=== PATIENT | male | born 1955 | race Caucasian/White ===

== ENCOUNTER 2019-02-23 08:03 | Day surgery (SDC) | payer OTHER ==
[2019-02-22 09:42] VITALS: BMI 27.6
[~2019-02-23 08:03] MED LIST: LACTATED RINGERS 1,000 ML IV SCH; LIDOCAINE 1% 20 ML VIAL (10MG/ML) FOR IV START INTRADERMA PRN
[2019-02-23 08:20] VITALS: RESP 16; TEMP 97.4
[2019-02-23] MEDS ORDERED: PROPOFOL 10 MG/ML 20 ML VIAL IV ONE (08:46)
--- NOTE | 2019-02-23 09:17 | P.PCN ---
Date of Procedure: 02/23/19 Description of Procedure: BRIEF HISTORY: Patient is a 63-year-old pleasant male scheduled for an elective colonoscopy as a part of high risk screening with history of colon polyps. The patient reports having polyps found on his previous 2 colonoscopies, 5 and 10 years ago. He denies any abdominal pain, change in bowel habits or blood per rectum. He does report one sister who passed, but is unsure if it was from colon cancer PROCEDURE PERFORMED: Colonoscopy. PREOPERATIVE DIAGNOSIS: Personal history of colon polyps, screening for malignant neoplasm of the colon, last colonoscopy 5 years ago. ESTIMATED BLOOD LOSS: Minimal. IV sedation per Anesthesia. PROCEDURE: After informed consent was obtained, the patient, was brought into the endoscopy unit. IV sedation was administered by Anesthesia under continuous monitoring. Digital rectal examination was normal. Initially the Olympus CF-190 flexible video colonoscope was then inserted in the rectum, gradually advanced into the cecum without any difficulty. Careful examination was performed as the scope was gradually being withdrawn. Ileocecal valve and the appendiceal orifice were visualized and appeared normal. Prep was excellent. Mucosa of the cecum, ascending colon, transverse colon, descending colon, sigmoid colon, and rectum appeared normal. Retroflexion was performed in the rectum and no lesions were seen, with mild internal hemorrhoids noted. The patient tolerated the procedure well. IMPRESSION: Normal-appearing colon from rectum to cecum . Mild internal hemorrhoids. RECOMMENDATIONS: Findings of this examination were discussed with the patient and his . Okay to resume medications and diet. Recommendation is for repeat colonoscopy in 5 years given personal history of colon polyps.
[2019-02-23 09:35] VITALS: BP 109/75; PULSE 58
== END 2019-02-23 09:54 | disposition home or self-care (01) ==
LOC: ORWHC2ENDO 08:03
PROVIDERS: ATTEND Internal Medicine
DX: Z12.11 Encounter for screening for malignant neoplasm of colon (principal); K64.8 Other hemorrhoids; Z86.010 Personal history of colon polyps; E78.5 Hyperlipidemia, unspecified; Z79.1 Long term (current) use of non-steroidal anti-inflammatories (NSAID); Z79.899 Other long term (current) drug therapy; Z80.0 Family history of malignant neoplasm of digestive organs
CPT/HCPCS: G0105; J2704; 45378

== ENCOUNTER → 2021-05-30 | Outpatient (CLI) | payer OTHER ==
[2021-05-30 08:32] LABS: Basophils % (A) 1 %; Eosinophils # (A) 0.2 k/uL (0-0.7); Eosinophils % (A) 4 %; HGB 15.9 gm/dL (13.0-17.5); Lymphocytes % (A) 33 %; MCH 30.8 pg (25.0-35.0); MCV 93.3 fL (80.0-100.0); Mean Platelet Volume 7.1; Monocytes # (A) 0.4 k/uL (0-1.0); Monocytes % (A) 7 %; Neutrophils # (A) 3.2 k/uL (1.3-7.7); Neutrophils % (A) 53 %; Platelet Count 203 k/uL (150-450); RBC 5.15 m/uL (4.30-5.90); RDW 12.1 % (11.5-15.5); WBC 5.9 k/uL (3.8-10.6)
[2021-05-30 08:46] LABS: INR 0.9 (<1.2)
[2021-05-30 09:02] LABS: Potassium 4.5 mmol/L (3.5-5.1)
== END | disposition home or self-care (01) ==
LOC: LABPAT 07:16
PROVIDERS: ATTEND Orthopaedic Surgery
DX: Z01.818 Encounter for other preprocedural examination (principal); M17.12 Unilateral primary osteoarthritis, left knee; I45.10 Unspecified right bundle-branch block; Z22.322 Carrier or suspected carrier of Methicillin resistant Staphylococcus aureus
CPT/HCPCS: 80051; 85025; 85610; 87070; 93005

== ENCOUNTER 2021-06-10 05:52 | Day surgery (SDC) | payer OTHER ==
[2021-06-06 13:09] VITALS: BMI 31.0
--- NOTE | 2021-06-09 11:06 | HP ---
HISTORY AND PHYSICAL CHIEF COMPLAINT: Left knee pain. 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 He has diffuse pain and swelling along with difficulty with prolonged walking and stairs. He has had previous injections and has tried medications, without much relief. He has also undergone extensive therapy. He notes daily pain that limits him severely. PAST MEDICAL HISTORY: Significant for arthritis. PAST SURGICAL HISTORY: Negative. CURRENT MEDICATIONS: None. ALLERGIES: HE DENIES DRUG ALLERGIES. FAMILY HISTORY: Negative. SOCIAL HISTORY: Negative for current tobacco or alcohol use. REVIEW OF SYSTEMS: Sixteen-point review of systems is otherwise reviewed and noncontributory. PHYSICAL EXAMINATION: On examination, the patient is approximately 5 feet 9 inches, 200 pounds of endomorphic habitus. HEENT exam is nonfocal. Neck is supple. He has painless passive motion of his left hip. Straight-leg raise is negative. Active motion of left knee minus 12 to 95 degrees of flexion. He has a mild effusion. He is tender about the medial joint line. Collaterals are stable, Angela is negative. Crystal's elicits medial pain. He has genu varum alignment. His distal neurovascular exam appears intact in the left lower extremity. X-rays to include weightbearing, notch, lateral and Merchant views of the left knee obtained in the office show severe medial compartment osteoarthrosis with subchondral sclerosis and [id number] changes. IMPRESSION: Left knee severe medial compartment osteoarthrosis. RECOMMENDATIONS: I talked to the patient at length regarding his condition and treatment options. At this point he is quite symptomatic and limited because of pain related to his osteoarthrosis despite previous extensive conservative measures. After thorough discussion, he opts to proceed with surgery. We will plan to proceed with left total knee arthroplasty. We will anticipate same-day discharge. Risks and benefits were discussed at length in layman's terms. MMODL / IJN: [id number] /
[~2021-06-10 05:52] MED LIST changes: +ACETAMINOPHEN TAB 500 MG TAB PO PRN; +DEXAMETHASONE SOD PHOSPHATE 4 MG/ML 1 ML VIAL IV ONE; -LACTATED RINGERS 1,000 ML IV SCH; -LIDOCAINE 1% 20 ML VIAL (10MG/ML) FOR IV START INTRADERMA PRN; +MELOXICAM 7.5 MG TAB PO PRN; +ONDANSETRON 4 MG/2 ML VIAL IVP ONE; +TRANEXAMIC ACID 1,000 MG in SODIUM CHLORIDE 0.9% 100 ML IVPB PRN
[2021-06-10] MEDS: LACTATED RINGERS 1,000 ML IV SCH ×2 (06:40→07:49)
[2021-06-10] MEDS ORDERED: fentaNYL (PF) 50 MCG/ML 2 ML AMP IVP ONE ×2 (06:57→07:01)
[2021-06-10] MEDS ORDERED: MIDAZOLAM 2 MG/2 ML VIAL IVP ONE (06:57)
[2021-06-10] MEDS ORDERED: HYDROmorphone 0.5 MG/0.5 ML SYRINGE IVP PRN (07:00)
[2021-06-10] MEDS ORDERED: SODIUM CHLORIDE 0.9% (PF) 10 ML VIAL ONE (07:49)
[2021-06-10] MEDS ORDERED: MIDAZOLAM 2 MG/2 ML VIAL ONE (07:49)
[2021-06-10] MEDS ORDERED: ROCURONIUM 10 MG/ML (5 ML VIAL) IV ONE (07:49)
[2021-06-10] MEDS ORDERED: fentaNYL (PF) 50 MCG/ML 2 ML AMP ONE (07:49)
[2021-06-10] MEDS ORDERED: SODIUM CHLORIDE 0.9% 100 ML BAG ONE (07:49)
[2021-06-10] MEDS ORDERED: LIDOCAINE 1% INJ 10MG/ML (20 ML MDV) ONE (07:49)
[2021-06-10] MEDS ORDERED: ROPIVACAINE 5 MG/ML 30 ML VIAL ONE (07:49)
[2021-06-10] MEDS ORDERED: TRANEXAMIC ACID 1,000 MG/10 ML VIAL ONE (07:49)
[2021-06-10] MEDS ORDERED: PHENYLEPHRINE-0.9% NACL SYG 1,000 MCG/10 ML SYRINGE ONE (07:49)
[2021-06-10] MEDS ORDERED: SUCCINYLCHOLINE CHLORIDE 100 MG/5 ML SYR IV ONE (07:49)
[2021-06-10] MEDS ORDERED: ceFAZolin 1,000 MG in SODIUM CHLORIDE 0.9% 1,000 ML IRRIGATION ONE (08:16)
[2021-06-10] MEDS ORDERED: LACTATED RINGERS 1,000 ML IV ONE (08:57)
[2021-06-10] MEDS ORDERED: ROPIVACAINE 0.2%-NS ON-Q PUMP 1,090 MG, EMPTY PAIN BALL 1 EACH MISCELLANE PRN (09:40)
--- NOTE | 2021-06-10 09:41 | P.OP ---
Date of Procedure: 06/10/21 Preoperative Diagnosis: Left knee severe tricompartmental osteoarthrosis Postoperative Diagnosis: Same Procedure(s) Performed: Left total knee arthroplastycementedposterior stabilized Implants: Depuy Attune size 7 cemented femoral component, size 6 cemented tibial component, 9 mm articular surface, 35 mm cemented patellar component. This is a posterior stabilized implant. Anesthesia: [facility] Surgeon: Kal Pelletier Still Operator Gin #1: Nehemiah Roa Estimated Blood Loss (ml): 50 Pathology: other (Bone fragments) Condition: stable Disposition: PACU Indications for Procedure: The patient's a 65-year-old male who presents with progressive left knee pain secondary osteoarthrosis despite previous conservative measures. After through discussion of the options to include continued conservative measures versus operative options he opted to proceed with surgery. Operative risks to include infection, neurovascular injury, development of blood clots, possible fracture, possible component loosening/failure and need for subsequent procedures was discussed. Informed consent was obtained. Operative Findings: As below Description of Procedure: The patient was brought to the operating room, and after induction of spinal anesthesia the left lower extremity was prepped and draped in a normal fashion. The tourniquet was inflated to 270 mm marker. A longitudinal incision extending 3 finger breaths above the superior pole of patella extending to the medial aspect the tibial tubercle was then made. The skin and subcutaneous tissues were divided sharply. Electrocautery was used for hemostasis. A medial parapatellar arthrotomy was performed. The medial soft tissues to include the superficial and deep portions of the medial collateral ligament were elevated subperiosteally. The patella was everted. A portion of the retropatellar fat pad was excised sharply. The anterior cruciate ligament was sacrificed. Blunt retractors were placed. A starting hole was made in the distal femur 1 cm anterior to the posterior cruciate ligament origin. An intramedullary femoral guide was then inserted planning on 5 valgus distal cut with 9 mm distal resection. The cutting block was pinned in place. The distal cut was then made. The posterior referencing sizing guide was utilized. I felt size 7 was most appropriate. 3 of external rotation was built into the system and verified off the trans-epicondylar axis and the posterior condyles. The cutting block was pinned in place. The anterior, posterior, and chamfer cuts then made. Bone fragments were removed. The intercondylar guide was placed and the notch cut was made with a sagittal saw. The bone block was removed in one fragment. The trial component was then placed. There is good anterior to posterior and medial to lateral fit. The distal peg holes were drilled. The trial component was removed. Attention was then paid towards preparing the proximal femur. An extra medullary guide was utilized in line with the tibial shaft and second metatarsal distally. I planned on to mm resection from the medial compartment. The cutting block was pinned in place. The proximal tibial cut was then made. The bone was removed in one fragment. The remnants of the medial and lateral menisci were excised at the capsular junction with electrocautery. The tibia sized most appropriately at size 6. The trial femoral and tibial components were placed along with a 9 mm articular surface. I was able to obtain full flexion and extension with internal and external rotation. After several flexi on and extension cycles, the tibial rotation was marked with electrocautery line with the medial one third of the tibial tubercle. Attention was then paid towards preparing the patella. A patella reamer was utilized taking stem to 14 mm of bone stock. A good flush cut was made. The patella sized most appropriately 35 mm. The peg holes were drilled. The trial components placed. I had good patellofemoral tracking with no hands technique. The trial components were then removed. The tibia was prepared in the appropriate rotation with appropriate drill and keel punch. The posterior osteophytes were removed with a curved osteotome. The flexion and extension gaps were checked and felt to be symmetric at 9 mm. A trial components were then removed. The bony surfaces were prepared with pulsatile lavage and dried. The tibial component was then cemented place was fully seated. Excess cement was removed. The femoral component cemented place and was fully seated. Excess cement was removed. The trial 9 mm articular surface was placed and the knee was put in full extension. The patella component was cemented place. After the cement had sufficiently hardened, the knee was again taken through a range of motion. Again I was able to obtain full flexion and extension with varus and valgus stress. The trial 9 mm articular surface was removed and the final one inserted. This was fully seated. Care was taken to avoid any soft tissue interposition. Pulsatile lavage was again utilized. The medial parapatellar arthrotomy was closed with #2 Ethibond suture. The tourniquet was deflated with approximately 60 minutes total tourniquet time. Final hemostasis was obtained with the cautery. There was minimal bleeding therefore a deep drain was not placed. The subcutaneous tissues were reapproximated with interrupted 2-0 Vicryl sutures. The skin was reapproximated with 3-0 subcuticular strata fix suture. Skin tape and adhesive was applied. A sterile dressing was applied. The patient was awoken from sedation and transferred to recovery room in good condition. Blood loss was estimated at 50 mL. No complications were incurred. Sponge and needle counts were correct at the end of the case. Nehemiah DANIEL assisted during the major components of this case to include exposure, bone resection, implantation, and closure.
[2021-06-10 09:51] VITALS: TEMP 97.9
--- NOTE | 2021-06-10 10:11 | XR ---
EXAMINATION TYPE: XR knee limited LT DATE OF EXAM: 06/10/2021 CLINICAL HISTORY: Left knee pain and arthritis status post total knee replacement. TECHNIQUE: Portable AP and crosstable lateral views of the left knee are obtained immediately postop eratively. COMPARISON: Outside left knee x-ray May 15, 2021 FINDINGS: Metallic hardware from total left knee arthroplasty is seen and appears satisfactory in al ignment and position. There is evidence of recent surgery with diffuse subcutaneous gas and soft tis yancy swelling noted. Some nonspecific cortical thickening lateral aspect mid to distal femur is partia lly imaged. Correlate clinically. IMPRESSION: METALLIC HARDWARE FROM TOTAL LEFT KNEE ARTHROPLASTY IS SATISFACTORY IN ALIGNMENT.
[2021-06-10] MEDS ORDERED: HYDROcodone/APAP 7.5-325MG 1 EACH TAB PO ONE (11:10)
[2021-06-10] MEDS ORDERED: HYDROcodone/APAP 7.5-325MG 1 EACH TAB ONE (11:14)
[2021-06-10] MEDS ORDERED: HYDROcodone/APAP 5-325MG 1 EACH TAB PO PRN (12:34)
[2021-06-10] MEDS ORDERED: HYDROcodone/APAP 7.5-325MG 1 EACH TAB PO PRN (12:34)
[2021-06-10] MEDS ORDERED: NALOXONE 0.4 MG/ML 1 ML VIAL IV PRN (12:34)
--- NOTE | 2021-06-10 13:56 | P.ANPRN ---
Procedure Note - Anesthesia - Nerve Block Performed Left Adductor Canal Infusion Time Out Performed: Yes (656) Date of Procedure: 06/10/21 Procedure Start Time: 06:59 Procedure Stop Time: 07:05 Location of Patient: PreOp Indication: Acute Post-Operative Pain, Requested by Surgeon Specifically requested for management of pain by DrWally: Kal Pelletier Type: Sedate with meaningful contact maintained Preparation: Sterile Prep, Sterile Dressing Position: Supine Needle Types: Pajunk Needle Gauge: 18 Ultrasound used to visualize needle placement: Yes Ultrasound used to observe medication spread: Yes Injectate: 0.5% Ropivacaine (see comment for volume) (20cc 0.25%) Blood Aspirated: No Pain Paresthesia on Injection Noted: No Resistance on Injection: Normal Image Stored and Saved: Yes Events: Uneventful and Well Tolerated Left iPack Single Time Out Performed: Yes (06:56) Date of Procedure: 06/10/21 Procedure Start Time: 07:06 Procedure Stop Time: 07:10 Location of Patient: PreOp Indication: Acute Post-Operative Pain Specifically requested for management of pain by Dr.: Kal Pelletier Sedation Type: Sedate with meaningful contact maintained Preparation: Sterile Prep Position: Supine Needle Types: Facet Needle Gauge: 21 Ultrasound used to visualize needle placement: Yes Ultrasound used to observe medication spread: Yes Injectate: 0.5% Ropivacaine (see comment for volume) (20cc 0.25%) Blood Aspirated: No Pain Paresthesia on Injection Noted: No Resistance on Injection: Normal Image Stored and Saved: Yes Events: Uneventful and Well Tolerated
[2021-06-10 14:28] VITALS: BP 122/74; PULSE 79; RESP 20
== END 2021-06-10 14:12 | disposition home health service (06) ==
LOC: OR 05:52
PROVIDERS: ATTEND Orthopaedic Surgery
DX: M17.12 Unilateral primary osteoarthritis, left knee (principal); M25.762 Osteophyte, left knee; E78.5 Hyperlipidemia, unspecified; Z79.1 Long term (current) use of non-steroidal anti-inflammatories (NSAID); Z79.899 Other long term (current) drug therapy
CPT/HCPCS: 97110; 97161; 64999; 64448; 76942; 86900; 86901; 86850; 88300; 73560; 27447; C1713 ×2; C1776; J2250; J1100; J0690 ×2; J2405; J2001; J3010; J2795 ×2; J2370; J0330

== ENCOUNTER 2021-10-07 05:41 | Day surgery (SDC) | payer OTHER ==
[2021-10-02 16:48] VITALS: BMI 31.0
--- NOTE | 2021-10-06 11:31 | HP ---
HISTORY AND PHYSICAL CHIEF COMPLAINT: Right knee pain. HISTORY OF PRESENT ILLNESS: The patient is a 66-year-old retired male who presents with progressive right knee pain for the past several years, worsening recently. He has tried medications and injections, with minimal relief. He notes daily pain that limits him. He does use a cane. PAST MEDICAL HISTORY: Significant for osteoarthritis. PAST SURGICAL HISTORY: Significant for left total knee arthroplasty. CURRENT MEDICATIONS: Hydrocodone. ALLERGIES: HE DENIES DRUG ALLERGIES. FAMILY HISTORY: Negative. SOCIAL HISTORY: Negative for current tobacco or alcohol use. REVIEW OF SYSTEMS: Sixteen-point review of systems otherwise reviewed and is noncontributory. PHYSICAL EXAMINATION: On examination, the patient is approximately 5 feet 9 inches, 202 pounds, of mesomorphic habitus. HEENT exam is nonfocal. Neck is supple. He has painless passive motion of the right hip. Straight-leg raise is negative. Active motion of the right knee: Minus 13 to 120 degrees of flexion. He is tender about the medial joint line. He has mild effusion. He has genu varum alignment. His distal neurovascular exam appears intact in the right lower extremity. Weightbearing notch, lateral and Merchant views of the right knee obtained in the office show severe medial and patellofemoral compartment narrowing with [id number] changes and subchondral sclerosis. IMPRESSION: Right knee severe medial and patellofemoral compartment osteoarthrosis. RECOMMENDATIONS: I talked to the patient at length regarding his condition along with treatment options. At this point he is quite symptomatic and limited despite previous conservative measures. After thorough discussion, he opts to proceed with surgery. We will plan to proceed with right total knee arthroplasty, likely as a same-day discharge. Risks and benefits were discussed at length in layman's terms. MMODL / IJN: [id number] /
[~2021-10-07 05:41] MED LIST changes: +LACTATED RINGERS 1,000 ML IV SCH
[2021-10-07] MEDS ORDERED: fentaNYL (PF) 50 MCG/ML 2 ML AMP IVP ONE (07:09)
[2021-10-07] MEDS ORDERED: MIDAZOLAM 2 MG/2 ML VIAL IVP ONE (07:09)
[2021-10-07] MEDS ORDERED: ROPIVACAINE 0.2%-NS ON-Q PUMP 1,090 MG, EMPTY PAIN BALL 1 EACH MISCELLANE PRN (07:49)
--- NOTE | 2021-10-07 07:51 | P.ANPRN ---
Procedure Note - Anesthesia - Nerve Block Performed Right Adductor Canal Time Out Performed: Yes (07:) Date of Procedure: 10/07/21 Procedure Start Time: Procedure Stop Time: Location of Patient: PreOp Indication: Acute Post-Operative Pain, Requested by Surgeon (Dr Pelletier) Sedation Type: Sedate with meaningful contact maintained Preparation: Sterile Prep, Sterile Dressing Position: Supine Catheter: Indwelling Needle Types: Pajunk Needle Gauge: 21 Ultrasound used to visualize needle placement: Yes Ultrasound used to observe medication spread: Yes Injectate: 0.5% Ropivacaine (see comment for volume) (15cc) Blood Aspirated: No Pain Paresthesia on Injection Noted: No Resistance on Injection: Normal Image Stored and Saved: Yes Events: Uneventful and Well Tolerated
--- NOTE | 2021-10-07 07:55 | P.ANPRN ---
Procedure Note - Anesthesia - Nerve Block Performed Right iPack Time Out Performed: Yes Date of Procedure: 10/07/21 Procedure Start Time: 07:20 Procedure Stop Time: 07:29 Location of Patient: PreOp Indication: Acute Post-Operative Pain, Requested by Surgeon (Dr Pelletier) Sedation Type: Sedate with meaningful contact maintained Preparation: Sterile Prep Position: Supine Catheter: None Needle Types: Pajunk Needle Gauge: 21 Ultrasound used to visualize needle placement: Yes Ultrasound used to observe medication spread: Yes Injectate: 0.5% Ropivacaine (see comment for volume) (15cc + 5cc PF Normal saline) Blood Aspirated: No Pain Paresthesia on Injection Noted: No Resistance on Injection: Normal Image Stored and Saved: Yes Events: Uneventful and Well Tolerated
[2021-10-07] MEDS ORDERED: TRANEXAMIC ACID 1,000 MG/10 ML VIAL ONE (08:05)
[2021-10-07] MEDS ORDERED: NEOSTIGMINE 1 MG/ML 10 ML VIAL ONE (08:05)
[2021-10-07] MEDS ORDERED: GLYCOPYRROLATE 0.2 MG/ML 2 ML VIAL ONE (08:05)
[2021-10-07] MEDS ORDERED: SUCCINYLCHOLINE CHLORIDE 100 MG/5 ML SYR IV ONE (08:05)
[2021-10-07] MEDS ORDERED: PROPOFOL 10 MG/ML 20 ML VIAL IV ONE (08:05)
[2021-10-07] MEDS ORDERED: HYDROmorphone (PF) 1 MG/ML ONE (08:05)
[2021-10-07] MEDS ORDERED: ROPIVACAINE 5 MG/ML 30 ML VIAL ONE (08:05)
[2021-10-07] MEDS ORDERED: SODIUM CHLORIDE 0.9% 100 ML BAG ONE (08:05)
[2021-10-07] MEDS ORDERED: SODIUM CHLORIDE 0.9% (PF) 10 ML VIAL ONE (08:05)
[2021-10-07] MEDS ORDERED: ROCURONIUM 10 MG/ML (5 ML VIAL) IV ONE (08:05)
[2021-10-07] MEDS ORDERED: LIDOCAINE 1% INJ 10MG/ML (20 ML MDV) ONE (08:05)
[2021-10-07] MEDS ORDERED: fentaNYL (PF) 50 MCG/ML 2 ML AMP ONE (08:05)
[2021-10-07] MEDS ORDERED: ceFAZolin 1,000 MG in SODIUM CHLORIDE 0.9% 1,000 ML IRRIGATION ONE (08:26)
[2021-10-07] MEDS ORDERED: NALOXONE 0.4 MG/ML 1 ML VIAL IV PRN (09:39)
[2021-10-07] MEDS ORDERED: ONDANSETRON 4 MG/2 ML VIAL IVP PRN (09:39)
[2021-10-07] MEDS ORDERED: HYDROmorphone 0.5 MG/0.5 ML SYRINGE IVP PRN (09:39)
[2021-10-07] MEDS ORDERED: HYDROcodone/APAP 7.5-325MG 1 EACH TAB PO PRN (09:39)
[2021-10-07] MEDS ORDERED: LACTATED RINGERS 1,000 ML IV ONE ×2 (09:46→14:19)
[2021-10-07] MEDS: HYDROmorphone 0.5 MG/0.5 ML SYRINGE IVP PRN ×4 (10:07→10:44)
--- NOTE | 2021-10-07 10:07 | P.OP ---
Date of Procedure: 10/07/21 Preoperative Diagnosis: Right knee severe tricompartmental osteoarthrosis Postoperative Diagnosis: Same Procedure(s) Performed: Right total knee arthroplastyposterior stabilizedcemented Implants: Depuy Attune size 7 cemented femoral component, size 6 cemented tibial component, 10 mm articular surface, 35 mm cemented patellar component. Anesthesia: quan LOWRY Surgeon: Kal Pelletier Hot Pond Operator #1: Augustine Duenas Estimated Blood Loss (ml): 50 Pathology: other (Bone fragments) Condition: stable Disposition: PACU Indications for Procedure: The patient is a 66-year-old male presents with progressive right knee pain seco ndary to osteoarthrosis despite conservative measures. A discussion of the risks and benefits of operative intervention versus continued conservative measures was made with patient. He opted to proceed with surgery. Operative risks to include infection, neurovascular injury, development of blood clots, possible component loosening/failure and need for subsequent procedures was discussed. Informed consent was obtained. Operative Findings: As below Description of Procedure: The patient was brought to the operating room, and after induction of spinal anesthesia the right lower extremity was prepped and draped in a normal fashion. The tourniquet was inflated to 270 mm marker. A longitudinal incision extending 3 finger breaths above the superior pole of patella extending to the medial aspect the tibial tubercle was then made. The skin and subcutaneous tissues were divided sharply. Electrocautery was used for hemostasis. A medial parapatellar arthrotomy was performed. The medial soft tissues to include the superficial and deep portions of the medial collateral ligament were elevated subperiosteally. The patella was everted. A portion of the retropatellar fat pad was excised sharply. The anterior cruciate ligament was sacrificed. Blunt retractors were placed. A starting hole was made in the distal femur 1 cm ante rior to the posterior cruciate ligament origin. An intramedullary femoral guide was then inserted planning on 5 valgus distal cut with 9 mm distal resection. The cutting block was pinned in place. The distal cut was then made. The posterior referencing sizing guide was utilized. I felt size 7 was most appropriate. 3 of external rotation was built into the system and verified off the trans-epicondylar axis and the posterior condyles. The cutting block was pinned in place. The anterior, posterior, and chamfer cuts then made. Bone fragments were removed. The intercondylar guide was placed and the notch cut was made with a sagittal saw. The bone block was removed in one fragment. The trial component was then placed. There is good anterior to posterior and medial to lateral fit. The distal peg holes were drilled. The trial component was removed. Attention was then paid towards preparing the proximal femur. An extra medullary guide was utilized in line with the tibial shaft and second metatarsal distally. I planned on 2 mm resection from the medial compartment. The cutting block was pinned in place. The proximal tibial cut was then made. The bone was removed in one fragment. The remnants of the medial and lateral menisci were excised at the capsular junction with electrocautery. The tibia sized most appropriately at size 6. The trial femoral and tibial components were placed along with a 10 mm articular surface. I was able to obtain full flexion and extension with internal and external rotation. After several flexion and extension cycles, the tibial rotation was marked with electrocautery line with the medial one third of the tibial tubercle. Attention was then paid towards preparing the patella. A patella reamer was utilized taking stem to 14 mm of bone stock. A good flush cut was made. The patella sized most appropriately 35 mm. The peg holes were drilled. The trial components placed. I had good patellofemoral tracking with no hands technique. The trial components were then removed. The tibia was prepared in the appropriate rotation with appropriate drill and keel punch. The posterior osteophytes were removed with a curved osteotome. The flexion and extension gaps were checked and felt to be symmetric at 10 mm. A trial components were then removed. The bony surfaces were prepared with pulsatile lavage and dried. The tibial component was then cemented place was fully seated. Excess cement was removed. The femoral component cemented place and was fully seated. Excess cement was removed. The trial 10 mm articular surface was placed and the knee was put in full extension. The patella component was cemented place. After the cement had sufficiently hardened, the knee was again taken through a range of motion. Again I was able to obtain full flexion and extension with varus and valgus stress. The trial 10 mm articular surface was removed and the final one inserted. This was fully seated. Care was taken to avoid any soft tissue interposition. Pulsatile lavage was again utilized. The medial parapatellar arthrotomy was closed with #2 Ethibond suture. The tourniquet was deflated with approximately 60 minutes total tourniquet time. Final hemostasis was obtained with the cautery. There was minimal bleeding therefore a deep drain was not placed. The subcutaneous tissues were reapproximated with interrupted 2-0 Vicryl sutures. The skin was reapproximated with 3-0 subcuticular strata fix suture. Skin tape and adhesive was applied. A sterile dressing was applied. The patient was awoken from sedation and transferred to recovery room in good condition. Blood loss was estimated at 50 mL. No complications were incurred. Sponge and needle counts were correct at the end of the case. Justo DANIEL assisted during the major components of this case to include exposure, bone resection, implantation, and closure.
[2021-10-07 10:15] VITALS: TEMP 98
[2021-10-07] MEDS ORDERED: KETOROLAC 15 MG/ML 1 ML VIAL IVP ONE (10:31)
--- NOTE | 2021-10-07 11:14 | XR ---
Limited right knee HISTORY: Status post right knee arthroplasty 2 views the right knee Patient is status post right knee arthroplasty. There is anatomic alignment. Lucency is present withi n the soft tissues, there is soft tissue swelling. IMPRESSION: Orthopedic follow-up
[2021-10-07 13:27] VITALS: PULSE 99
[2021-10-07 14:18] VITALS: BP 125/82; RESP 20
== END 2021-10-07 16:11 | disposition home health service (06) ==
LOC: OR 05:41
PROVIDERS: ATTEND Orthopaedic Surgery
DX: M17.11 Unilateral primary osteoarthritis, right knee (principal)
CPT/HCPCS: 27447; 97110; 97161; 64999; 64448; 76942; 88300; 73560; C1713 ×2; C1776; J2250; J1100; J2710; J0690 ×2; J2405; J2001; J3010; J1170 ×2; J2795 ×2; J1885; J0330; J2704

== ENCOUNTER → 2022-07-30 | Outpatient (CLI) | payer OTHER ==
[2022-07-30 15:38] LABS: African American GFR (CKD) >90 (>60 ml/min/1.73 sqM); Blood Urea Nitrogen 20 mg/dL (9-20); Non-African American GFR(CKD) >90 (>60 ml/min/1.73 sqM)
--- NOTE | 2022-07-30 22:51 | CT ---
EXAMINATION TYPE: CT urogram wo/w con CT DLP: 4677.7 mGycm, Automated exposure control for dose reduction was used. DATE OF EXAM: 07/30/2022 4:33 PM COMPARISON: None CLINICAL INDICATION:Male, 67 years old with history of R31.1 BENIGN ESSENTIAL MICROSCOPIC HEMATURIA, BENIGN ESSENTIAL MICROSCOPIC HEMATURIA TECHNIQUE: Urogram with imaging of the abdomen and pelvis. Coronal and sagittal reformats were performed. 2D and 3D reconstructions are performed to assist visualization of the urinary tract on a separate workstat ion. Contrast used:100ml mL of Isovue 300 without and with IV Contrast, Oral contrast used: None. FINDINGS: LOWER CHEST: No significant findings. GENITOURINARY: RIGHT KIDNEY AND URETER: No calculi. No hydronephrosis or hydroureter. No renal mass or other lesions . No urothelial lesions: no filling defect, dilation, stricture or wall thickening. LEFT KIDNEY AND URETER: No calculi. No hydronephrosis or hydroureter. No renal mass or other lesions. No urothelial lesions: no filling defect, dilation, stricture or wall thickening. URINARY BLADDER: Not optimally distended. Limited evaluation secondary to partial filling of the blad casandra with excreted IV contrast. No calculi or obvious mass. REPRODUCTIVE: Prostate gland is enlarged measuring 5.8 cm transverse dimension. ABDOMEN LIVER: Unremarkable. GALLBLADDER AND BILE DUCTS: Unremarkable PANCREAS: Lipomatous pseudohypertrophy changes. SPLEEN: Unremarkable. ADRENAL GLANDS: Unremarkable. STOMACH AND BOWEL: . No evidence of bowel obstruction. Few scattered clonic diverticula present. PERITONEUM: No evidence of pneumoperitoneum, free fluid, or adenopathy. VASCULATURE: No evidence of aortic aneurysm. Atherosclerosis of the arterial vasculature. MUSCULOSKELETAL: No acute osseous abnormalities LYMPH NODES: No gross evidence for lymphadenopathy. SOFT TISSUE/ABDOMINAL WALL: Unremarkable IMPRESSION: 1. No evidence of urolithiasis or renal/urothelial neoplasm. 2. Prostatomegaly. Correlate serum PSA. 3. Colonic diverticulosis.
== END | disposition home or self-care (01) ==
LOC: RADCTMAIN 14:46
PROVIDERS: ATTEND Urology
DX: N40.0 Benign prostatic hyperplasia without lower urinary tract symptoms (principal); K57.30 Diverticulosis of large intestine without perforation or abscess without bleeding; R31.1 Benign essential microscopic hematuria
CPT/HCPCS: 82565; 84520; 74178; 36415; 74400; Q9967

== ENCOUNTER → 2023-01-05 | Outpatient (CLI) | payer OTHER ==
[2023-01-05 15:12] LABS: Basophils # (A) 0.04 X 10*3/uL (0.00-0.10); Basophils % (A) 0.6 %; Eosinophils # (A) 0.19 X 10*3/uL (0.04-0.35); Eosinophils % (A) 2.8 %; HCT 42.9 % (39.6-50.0); HGB 13.6 g/dL (13.0-17.0); Immature Grans, Automated 0.3 %; Lymphocytes # (A) 1.66 X 10*3/uL (0.90-5.00); Lymphocytes % (A) 24.6 %; MCH 26.8 pg (27.0-32.0); MCHC 31.7 g/dL (32.0-37.0); MCV 84.6 fL (80.0-97.0); Mean Platelet Volume 10.3 fL (9.5-12.2); Monocytes # (A) 0.76 X 10*3/uL (0.20-1.00); Monocytes % (A) 11.3 %; NRBC Per 100 WBC 0 /100 WBCS (0.0-0.0); Neutrophils # (A) 4.07 X 10*3/uL (1.80-7.70); Neutrophils % (A) 60.4 %; Platelet Count 232 X 10*3/uL (140-440); RBC 5.07 X 10*6/uL (4.40-5.60); RDW 15.2 % (11.5-14.5); WBC 6.74 X 10*3/uL (4.50-10.00)
[2023-01-05 16:08] LABS: % Iron Saturation 11.53 (15.00-50.00); Ferritin 20.4 ng/mL (22.0-322.0)
== END | disposition home or self-care (01) ==
LOC: LABWHC1 10:28
PROVIDERS: ATTEND Nurse Practitioner Family
DX: D64.9 Anemia, unspecified (principal)
CPT/HCPCS: 36415; 82728; 83540; 83550; 85025

== ENCOUNTER 2023-01-15 08:30 | Day surgery (SDC) | payer OTHER ==
[2023-01-13 12:32] VITALS: BMI 34.9
[~2023-01-15 08:30] MED LIST changes: -ACETAMINOPHEN TAB 500 MG TAB PO PRN; -DEXAMETHASONE SOD PHOSPHATE 4 MG/ML 1 ML VIAL IV ONE; +LIDOCAINE 1% (10MG/ML) FOR IV START INTRADERMA PRN; -MELOXICAM 7.5 MG TAB PO PRN; -ONDANSETRON 4 MG/2 ML VIAL IVP ONE; -TRANEXAMIC ACID 1,000 MG in SODIUM CHLORIDE 0.9% 100 ML IVPB PRN
[2023-01-15 08:46] VITALS: TEMP 97
[2023-01-15] MEDS ORDERED: PROPOFOL 10 MG/ML 20 ML VIAL IV ONE (09:01)
[2023-01-15] MEDS ORDERED: LIDOCAINE 2% INJ 20 MG/ML (2 ML VIAL) ONE (09:01)
--- NOTE | 2023-01-15 09:16 | P.PCN ---
Date of Procedure: 01/15/23 Procedure(s) Performed: Brief history: Patient is a pleasant s 67-year-old white male scheduled for an elective upper endoscopy as well as colonoscopy as a part of evaluation of iron deficiency anemia. He does complain of occasional heartburn. Denies any dysphagia or odynophagia. No rectal bleeding or melena. Last colonoscopy was 5 years ago. Procedure performed: Esophagogastroduodenoscopy with biopsy Colonoscopy Preoperative diagnosis: Iron deficiency anemia Anesthesia: [facility] Procedure: After informed consent was obtained from the patient was brought into the endoscopy unit and IV sedation was administered by anesthesia under continuous monitoring. Initially upper endoscopy was done. The Olympus GF 160 video endoscope was inserted inserted into the mouth and esophagus intubated without any difficulty and was gradually advanced into the stomach and duodenum and carefully examined. The bulb and second part of the duodenum appeared normal. Biopsies were done from the duodenum to rule out celiac disease The scope was then withdrawn into the stomach adequately insufflated with air and upon careful examination the antrum had mild gastritis and biopsies were done from this area. Mucosa of the body, cardia and fundus appeared normal. The scope was then withdrawn into the esophagus. Small hiatal hernia noted. The GE junction was located at 45 cm to the incisors. There were linear erosions in the distal esophagus consistent with LA grade B reflux esophagitis. Rest of the esophagus appeared normal. Patient tolerated the procedure well. At this time the patient continued to remain sedation. Initial digital rectal examination was normal. Olympus CF 160 video colonoscope was then inserted into the rectum and gradually advanced to the cecum without any difficulty. Careful examination was performed as the scope was gradually being withdrawn. The prep was excellent. The cecum, ascending colon, transverse colon, descending colon, sigmoid colon and rectum appeared normal. Retroflexion was performed in the rectum and no lesions were noted. Patient tolerated the procedure well. Impression: 1. Upper endoscopy revealed mild antral gastritis and LA grade B reflux esophagitis/small hiatal hernia. 2. Colonoscopy was within normal limits with no evidence of colorectal neoplasia Recommendations: Findings of this examination were discussed with the patient as well as his family. He was advised to follow with the biopsy results. He'll be started on Prilosec 20 mg daily and was briefly educated about antireflux measures. Recommend repeat screening colonoscopy in 10 years.
[2023-01-15 09:34] VITALS: RESP 16
[2023-01-15 09:47] VITALS: BP 150/86; PULSE 73
== END 2023-01-15 10:09 | disposition home or self-care (01) ==
LOC: ORWHC2ENDO 08:30
PROVIDERS: ATTEND Internal Medicine Gastroenterology
DX: K29.50 Unspecified chronic gastritis without bleeding (principal); D50.9 Iron deficiency anemia, unspecified; K44.9 Diaphragmatic hernia without obstruction or gangrene; K31.89 Other diseases of stomach and duodenum; K21.00 Gastro-esophageal reflux disease with esophagitis, without bleeding; E78.5 Hyperlipidemia, unspecified; N40.0 Benign prostatic hyperplasia without lower urinary tract symptoms; E66.9 Obesity, unspecified; Z79.899 Other long term (current) drug therapy
CPT/HCPCS: 88305; 88342; 45378; 43239; J2704; J2001; 88341

== ENCOUNTER → 2023-08-26 | Outpatient (CLI) | payer OTHER ==
[2023-08-26 16:14] LABS: Basophils # (A) 0.07 X 10*3/uL (0.00-0.10); Basophils % (A) 1.1 %; Eosinophils # (A) 0.25 X 10*3/uL (0.04-0.35); Eosinophils % (A) 3.8 %; HCT 49.1 % (39.6-50.0); HGB 15.7 g/dL (13.0-17.0); Lymphocytes # (A) 2.45 X 10*3/uL (0.90-5.00); Lymphocytes % (A) 37.7 %; MCH 27.4 pg (27.0-32.0); MCV 85.7 FL (80.0-97.0); Mean Platelet Volume 10.4 FL (9.5-12.2); Monocytes # (A) 0.72 X 10*3/uL (0.20-1.00); Monocytes % (A) 11.1 %; NRBC Per 100 WBC 0 X 10*3/uL (0.00-0.01); Neutrophils # (A) 2.99 X 10*3/uL (1.80-7.70); Platelet Count 268 X 10*3/uL (140-440); RBC 5.73 X 10*6/uL (4.40-5.60); RDW 14.6 % (11.5-14.5)
[2023-08-26 16:29] LABS: % Iron Saturation 8.81 (15.00-50.00); Ferritin 24.1 ng/mL (22.0-322.0)
== END | disposition home or self-care (01) ==
LOC: LABWHC1 09:54
PROVIDERS: ATTEND Nurse Practitioner Family
DX: D64.9 Anemia, unspecified (principal); B96.81 Helicobacter pylori [H. pylori] as the cause of diseases classified elsewhere
CPT/HCPCS: 36415; 82728; 83540; 83550; 85025; 87338

== ENCOUNTER 2023-11-13 10:19 | Emergency (ER) | payer OTHER ==
[2023-11-13] MEDS: HYDROmorphone 0.5 MG/0.5 ML SYRINGE IVP STA (10:51)
[2023-11-13] MEDS: LORazepam 2 MG/ML INJ IV STA (10:52)
--- NOTE | 2023-11-13 10:54 | ED ---
General Adult HPI - General Chief complaint: Urogenital Stated complaint: Kidney stone Time Seen by Provider: 11/13/23 10:25 Source: patient, RN notes reviewed, old records reviewed Mode of arrival: ambulatory Limitations: no limitations - History of Present Illness Initial comments: This is a 68-year-old male who presents to the emergency department because he is having some suprapubic abdominal pain. Patient states he been unable to urinate. Patient states he already saw the urologist and they told him he had a large urethral stone and that is causing him difficulty urinating. Patient denies any back pain. Patient [place] any dysuria. Patient denies any fever chills or cough. - Related Data Home Medications Medication Instructions Recorded Confirmed Ibuprofen [Motrin] 600 mg PO DAILY PRN 02/22/19 01/15/23 Gabapentin [Neurontin] 300 mg PO TID 01/13/23 01/15/23 Previous Rx's Medication Instructions Recorded Sulfamethox-Tmp 800-160Mg [Bactrim 1 each PO Q12HR #14 tab 11/13/23 DS 800-160 mg] Allergies Allergy/AdvReac Type Severity Reaction Status Date / Time No Known Allergies Allergy Verified 11/13/23 10:28 Review of Systems ROS Statement: Those systems with pertinent positive or pertinent negative responses have been documented in the HPI. ROS Other: All systems not noted in ROS Statement are negative. Past Medical History Past Medical History: Hyperlipidemia Additional Past Medical History / Comment(s): hx colon polyps History of Any Multi-Drug Resistant Organisms: None Reported Past Surgical History: Orthopedic Surgery Additional Past Surgical History / Comment(s): colonoscopies Past Anesthesia/Blood Transfusion Reactions: No Reported Reaction Past Psychological History: No Psychological Hx Reported Past Alcohol Use History: None Reported - Past Family History Mother Family Medical History: No Reported History Brother(s) Family Medical History: Cancer Sister(s) Family Medical History: Cancer Additional Family Medical History / Comment(s): colon General Exam - General Exam Comments Initial Comments: GENERAL: Patient is well-developed and well-nourished. Patient is nontoxic and well- hydrated and is in mild distress. ENT: Neck is soft and supple. No significant lymphadenopathy is noted. Oropharynx is clear. Moist mucous membranes. Neck has full range of motion without eliciting any pain. EYES: The sclera were anicteric and conjunctiva were pink and moist. Extraocular movements were intact and pupils were equal round and reactive to light. Eyelids were unremarkable. ABDOMEN: Patient has suprapubic distention and tenderness SKIN: Skin is clear with no lesions or rashes and otherwise unremarkable. NEUROLOGIC: Patient is alert and oriented x3. Cranial nerves II through XII are grossly i ntact. Motor and sensory are also intact. Normal speech, volume and content. Symmetrical smile. MUSCULOSKELETAL: Normal extremities with adequate strength and full range of motion. No lower extremity swelling or edema. No calf tenderness. LYMPHATICS: No significant lymphadenopathy is noted PSYCHIATRIC: Normal psychiatric evaluation. Limitations: no limitations Course Vital Signs 11/13/23 11/13/23 11/13/23 10:25 10:38 12:10 Temperature 97.3 F L 97.6 F Pulse Rate 72 69 61 Respiratory 20 19 20 Rate Blood Pressure 182/96 189/98 161/97 O2 Sat by Pulse 100 97 96 Oximetry 11/13/23 13:00 Temperature 97.8 F Pulse Rate 60 Respiratory 18 Rate Blood Pressure 128/83 O2 Sat by Pulse 97 Oximetry Medical Decision Making - Medical Decision Making Was pt. sent in by a medical professional or institution (, PA, HOME CARE ASSOCIATE, urgent care, hospital, or [facility]...) When possible be specific @ -No Did you speak to anyone other than the patient for history (EMS, parent, family, police, friend...)? What history was obtained from this source @ -No Did you review nursing and triage notes (agree or disagree)? Why? @ -I reviewed and agree with nursing and triage notes Were old charts reviewed (outside hosp., previous admission, EMS record, old EKG, old radiological studies, urgent care reports/EKG's, [facility] records)? Report findings @ -No old charts were reviewed Differential Diagnosis (chest pain, altered mental status, abdominal pain women, abdominal pain men, vaginal bleeding, weakness, fever, dyspnea, syncope, headache, dizziness, GI bleed, back pain, seizure, CVA, palpatations, mental health, musculoskeletal)? @ -Not applicable EKG interpreted by me (3pts min.). @ -As above X-rays interpreted by me (1pt min.). @ -None done CT interpreted by me (1pt min.). @ -None done U/S interpreted by me (1pt. min.). @ -None done What testing was considered but not performed or refused? (CT, X-rays, U/S, labs)? Why? @ -None What meds were considered but not given or refused? Why? @ -None Did you discuss the management of the patient with other professionals (professionals i.e. , PA, HOME CARE ASSOCIATE, lab, RT, psych nurse, social services assistant, job putter up and ticket preparer, teacher, parachute officer, case sealer)? Give summary @ -No Was smoking cessation discussed for >3mins.? @ -No Was critical care preformed (if so, how long)? @ -No Were there social determinants of health that impacted care today? How? (Homelessness, low income, unemployed, alcoholism, drug addiction, transportation, low edu. Level, literacy, decrease access to med. care, senior living, rehab)? @ -No Was there de-escalation of care discussed even if they declined (Discuss DNR or withdrawal of care, Hospice)? DNR status @ -No What co-morbidities impacted this encounter? (DM, HTN, Smoking, COPD, CAD, Cancer, CVA, ARF, Chemo, Hep., AIDS, mental health diagnosis, sleep apnea, mor bid obesity)? @ -None Was patient admitted / discharged? Hospital course, mention meds given and rou te, prescriptions, significant lab abnormalities, going to OR and other pertinent info. @ -Nursing and myself tried to get a Galindo catheter placed but we were unsuccessful Dr. Merrill the urologist came in and did place a catheter. Patient's urine did show some white cells and some nitrate so Dr. Dugan wanted the patient treated for urinary tract infection. Patient had a leg bag applied and he will follow-up with Dr. Merrill to have a urethral stone removed Undiagnosed new problem with uncertain prognosis? @ -No Drug Therapy requiring intensive monitoring for toxicity (Heparin, Nitro, Insulin, Cardizem)? @ -No Were any procedures done? @ -No Diagnosis/symptom? @ -Urinary retention Acute, or Chronic, or Acute on Chronic? @ -Acute Uncomplicated (without systemic symptoms) or Complicated (systemic symptoms)? @ -Uncomplicated Side effects of treatment? @ -No Exacerbation, Progression, or Severe Exacerbation? @ -No Poses a threat to life or bodily function? How? (Chest pain, USA, SC, pneumonia, PE, COPD, DKA, ARF, appy, cholecystitis, CVA, Diverticulitis, Homicidal, Suicidal, threat to staff... and all critical care pts) @ -No Diagnosis/symptom? @ -Urinary tract infection Acute, or Chronic, or Acute on Chronic? @ -Acute Uncomplicated (without systemic symptoms) or Complicated (systemic symptoms)? @ -Uncomplicated Side effects of treatment? @ -None Exacerbation, Progression, or Severe Exacerbation] @ -No Poses a threat to life or bodily function? @ -No - Lab Data Result diagrams: 11/13/23 10:51 11/13/23 10:51 Lab Results 11/13/23 11/13/23 11/13/23 Range/Units 10:51 10:51 11:15 WBC 6.4 (3.8-10.6) k/uL RBC 5.71 (4.30-5.90) m/uL Hgb 16.1 (13.0-17.5) gm/dL Hct 50.3 (39.0-53.0) % MCV 88.1 (80.0-100.0) fL MCH 28.1 (25.0-35.0) pg MCHC 32.0 (31.0-37.0) g/dL RDW 14.4 (11.5-15.5) % Plt Count 221 (150-450) k/uL MPV 7.7 Neutrophils % 54 % Lymphocytes % 32 % Monocytes % 7 % Eosinophils % 4 % Basophils % 1 % Neutrophils # 3.4 (1.3-7.7) k/uL Lymphocytes # 2.0 (1.0-4.8) k/uL Monocytes # 0.4 (0-1.0) k/uL Eosinophils # 0.2 (0-0.7) k/uL Basophils # 0.1 (0-0.2) k/uL Sodium 133 L (137-145) mmol/L Potassium 4.0 (3.5-5.1) mmol/L Chloride 102 (98-107) mmol/L Carbon Dioxide 21 L (22-30) mmol/L Anion Gap 10 mmol/L BUN 24 H (9-20) mg/dL Creatinine 0.69 (0.66-1.25) mg/dL Est GFR (CKD-EPI)AfAm >90 (>60 ml/min/1.73 sqM) Est GFR (CKD-EPI)NonAf >90 (>60 ml/min/1.73 sqM) Glucose 97 (74-99) mg/dL Calcium 9.1 (8.4-10.2) mg/dL Total Bilirubin 0.8 (0.2-1.3) mg/dL AST 41 (17-59) U/L ALT 40 (4-49) U/L Alkaline Phosphatase 82 (38-126) U/L Total Protein 6.8 (6.3-8.2) g/dL Albumin 4.0 (3.5-5.0) g/dL Urine Color Dark Brown Urine Appearance Clear (Clear) Urine pH 5.5 (5.0-8.0) Ur Specific [place] 1.013 (1.001-1.035) Urine Protein Negative (Negative) Urine Glucose (UA) Negative (Negative) Urine Ketones Negative (Negative) Urine Blood Moderate H (Negative) Urine Nitrite Positive (Negative) Urine Bilirubin Negative (Negative) Urine Urobilinogen <2.0 (<2.0) mg/dL Ur Leukocyte Esterase Trace H (Negative) Urine RBC >182 H (0-5) /hpf Urine WBC 28 H (0-5) /hpf Urine Bacteria Rare H (None) /hpf Urine Mucus Rare H (None) /hpf Disposition Clinical Impression: Urinary tract infection, Urinary retention Disposition: HOME SELF-CARE Condition: Good Prescriptions: Sulfamethox-Tmp 800-160Mg [Bactrim DS 800-160 mg] 1 each PO Q12HR #14 tab Is patient prescribed a controlled substance at d/c from ED?: No Referrals: Harshad Garcia MD [STAFF PHYSICIAN] - 1-2 days Time of Disposition: 13:37
[2023-11-13 11:01] LABS: Basophils # (A) 0.1 k/uL (0-0.2); Basophils % (A) 1 %; Eosinophils # (A) 0.2 k/uL (0-0.7); Eosinophils % (A) 4 %; HCT 50.3 % (39.0-53.0); HGB 16.1 gm/dL (13.0-17.5); Lymphocytes % (A) 32 %; MCH 28.1 pg (25.0-35.0); MCV 88.1 fL (80.0-100.0); Mean Platelet Volume 7.7; Monocytes # (A) 0.4 k/uL (0-1.0); Monocytes % (A) 7 %; Neutrophils # (A) 3.4 k/uL (1.3-7.7); Neutrophils % (A) 54 %; Platelet Count 221 k/uL (150-450); RBC 5.71 m/uL (4.30-5.90); RDW 14.4 % (11.5-15.5); WBC 6.4 k/uL (3.8-10.6)
[2023-11-13 11:48] LABS: Appearance,Urine Clear (Clear); Bacteria,Urine Rare /hpf; Bilirubin,Urine Negative (Negative); Blood,Urine Moderate (Negative); Color,Urine Dark Brown; Glucose,Urine (UA) Negative (Negative); Ketones,Urine Negative (Negative); Leukocyte Esterase,Urine Trace (Negative); Mucus,Urine Rare /hpf; Nitrite,Urine Positive (Negative); PH, Urine 5.5 (5.0-8.0); Protein,Urine Negative (Negative); RBC,Urine >182 /hpf (0-5); Specific Gravity,Urine 1.013 (1.001-1.035); Urobilinogen,Urine <2.0 mg/dL (<2.0); WBC,Urine 28 /hpf (0-5)
[2023-11-13 11:55] LABS: ALT 40 U/L (4-49); AST 41 U/L (17-59); African American GFR (CKD) >90 (>60 ml/min/1.73 sqM); Alkaline Phosphatase 82 U/L (38-126); Anion Gap 10 mmol/L; Blood Urea Nitrogen 24 mg/dL (9-20); Calcium 9.1 mg/dL (8.4-10.2); Carbon Dioxide 21 mmol/L (22-30); Chloride 102 mmol/L (98-107); Glucose 97 mg/dL (74-99); Non-African American GFR(CKD) >90 (>60 ml/min/1.73 sqM); Sodium 133 mmol/L (137-145); Total Bilirubin 0.8 mg/dL (0.2-1.3); Total Protein 6.8 g/dL (6.3-8.2)
[2023-11-13 13:24] VITALS: RESP 18
--- NOTE | 2023-11-13 13:28 | P.GSCN ---
History of Present Illness Consult date: 11/13/23 Reason for Consult: Urinary retention, bladder stone History of present illness: This is a 68-year-old male with history of difficulty voiding, underwent a cystoscopy that showed evidence of a large stone stuck at the bladder neck. He is tentatively scheduled for a cystolitholapaxy on November 22. He has been having difficulty voiding and this morning he has been unable to void. His postvoid residual was checked and was greater than 900 mL, attempted place a Galindo catheter by the emergency room department was unsuccessful secondary to re sistance met at the stone. He is complaining of being able only to dribble small amount of urine at this time with abdominal pressure Review of Systems - Constitutional Denies chills, Denies fever - Cardiovascular Denies chest pain, Denies shortness of breath - Respiratory Denies cough, Denies 7 - Gastrointestinal Reports abdominal pain - Genitourinary Reports dysuria, Reports hematuria - Neurological Denies headaches, Denies syncope Past Medical History Past Medical History: Hyperlipidemia Additional Past Medical History / Comment(s): hx colon polyps History of Any Multi-Drug Resistant Organisms: None Reported Past Surgical History: Orthopedic Surgery Additional Past Surgical History / Comment(s): colonoscopies Past Anesthesia/Blood Transfusion Reactions: No Reported Reaction Past Psychological History: No Psychological Hx Reported Past Alcohol Use History: None Reported - Past Family History Mother Family Medical History: No Reported History Brother(s) Family Medical History: Cancer Sister(s) Family Medical History: Cancer Additional Family Medical History / Comment(s): colon Medications and Allergies Home Medications Medication Instructions Recorded Confirmed Type Ibuprofen [Motrin] 600 mg PO DAILY PRN 02/22/19 01/15/23 History Gabapentin [Neurontin] 300 mg PO TID 01/13/23 01/15/23 History Allergies Allergy/AdvReac Type Severity Reaction Status Date / Time No Known Allergies Allergy Verified 11/13/23 10:28 Surgical - Exam Vital Signs Temp Pulse Resp BP Pulse Ox 97.3 F L 72 20 182/96 100 11/13/23 10:25 11/13/23 10:25 11/13/23 10:25 11/13/23 10:25 11/13/23 10:25 - General no distress, moderate pain - Eyes normal ocular movement, no pale - ENT normal nares, normal mucosa - Respiratory normal expansion, normal respiratory effort - Abdomen Abdomen: soft, tender (Suprapubic region), no distended - Genitourinary normal penis with no external lesions, testicles present - Psychiatric oriented to time, oriented to person, oriented to place Results - Labs 11/13/23 10:51 11/13/23 10:51 Abnormal Lab Results - Last 24 Hours (Table) 11/13/23 11/13/23 Range/Units 10:51 11:15 Sodium 133 L (137-145) mmol/L Carbon Dioxide 21 L (22-30) mmol/L BUN 24 H (9-20) mg/dL Urine Blood Moderate H (Negative) Ur Leukocyte Esterase Trace H (Negative) Urine RBC >182 H (0-5) /hpf Urine WBC 28 H (0-5) /hpf Urine Bacteria Rare H (None) /hpf Urine Mucus Rare H (None) /hpf Diabetes panel 11/13/23 Range/Units 10:51 Sodium 133 L (137-145) mmol/L Potassium 4.0 (3.5-5.1) mmol/L Chloride 102 (98-107) mmol/L Carbon Dioxide 21 L (22-30) mmol/L BUN 24 H (9-20) mg/dL Creatinine 0.69 (0.66-1.25) mg/dL Glucose 97 (74-99) mg/dL Calcium 9.1 (8.4-10.2) mg/dL AST 41 (17-59) U/L ALT 40 (4-49) U/L Alkaline Phosphatase 82 (38-126) U/L Total Protein 6.8 (6.3-8.2) g/dL Albumin 4.0 (3.5-5.0) g/dL Calcium panel 11/13/23 Range/Units 10:51 Calcium 9.1 (8.4-10.2) mg/dL Albumin 4.0 (3.5-5.0) g/dL Pituitary panel 11/13/23 Range/Units 10:51 Sodium 133 L (137-145) mmol/L Potassium 4.0 (3.5-5.1) mmol/L Chloride 102 (98-107) mmol/L Carbon Dioxide 21 L (22-30) mmol/L BUN 24 H (9-20) mg/dL Creatinine 0.69 (0.66-1.25) mg/dL Glucose 97 (74-99) mg/dL Calcium 9.1 (8.4-10.2) mg/dL Adrenal panel 11/13/23 Range/Units 10:51 Sodium 133 L (137-145) mmol/L Potassium 4.0 (3.5-5.1) mmol/L Chloride 102 (98-107) mmol/L Carbon Dioxide 21 L (22-30) mmol/L BUN 24 H (9-20) mg/dL Creatinine 0.69 (0.66-1.25) mg/dL Glucose 97 (74-99) mg/dL Calcium 9.1 (8.4-10.2) mg/dL Total Bilirubin 0.8 (0.2-1.3) mg/dL AST 41 (17-59) U/L ALT 40 (4-49) U/L Alkaline Phosphatase 82 (38-126) U/L Total Protein 6.8 (6.3-8.2) g/dL Albumin 4.0 (3.5-5.0) g/dL Assessment and Plan Assessment: 68-year-old male presents to the hospital with urinary retention secondary to stone stuck in the bladder neck. -Was able to place a 12 Irish Galindo with return of blood-tinged urine -Advised to keep Galindo catheter until his surgery date for cystolitholapaxy
--- NOTE | 2023-11-13 13:29 | P.PCN ---
Date of Procedure: 11/13/23 Preoperative Diagnosis: Urinary retention Postoperative Diagnosis: Same Procedure(s) Performed: Galindo catheter placement Description of Procedure: Patient penis was prepped, a 12 Mongolian catheter was advanced per urethra, I did meet some resistance at the bladder neck but I was able to advance the catheter into the bladder with a return of blood-tinged urine. The balloon was inflated. Patient tolerated procedure well
[2023-11-13] MEDS: cefTRIAXone IN SWFI 1,000 MG/10 ML SYRINGE IVP STA (13:58)
[2023-11-13 14:01] VITALS: BP 141/83; PULSE 61; TEMP 98
== END 2023-11-13 14:04 | disposition home or self-care (01) ==
LOC: EC 10:19
DX: N39.0 Urinary tract infection, site not specified (principal); N21.0 Calculus in bladder
CPT/HCPCS: 51798; 36415; 80053; 85025; 81001; 87086; 99284; 96374; 96375; 51702; J0696; J1170

== ENCOUNTER 2023-11-13 16:47 | Observation (INO) | payer OTHER, MEDICARE ==
--- NOTE | 2023-11-13 17:58 | ED ---
Male Urogenital HPI - General Chief complaint: Urogenital Stated complaint: Catheter issues Time Seen by Provider: 11/13/23 16:54 Source: patient Mode of arrival: ambulatory Limitations: no limitations - History of Present Illness Initial comments: 68-year-old male presenting with chief complaint of occluded Galindo catheter. Patient was here earlier today and had a 12 Lithuanian catheter placed by urology. He has a current urethral stone that is scheduled to be removed later in November. Patient has had bleeding from the catheter and now is having buildup of severe pain and pressure over the bladder. He called Dr. Garcia who told him to report back to the ER. - Related Data Home Medications Medication Instructions Recorded Confirmed Atorvastatin Calcium [Lipitor] 80 mg PO HS 11/13/23 11/13/23 Cetirizine HCl 10 mg PO DAILY PRN 11/13/23 11/13/23 Diclofenac Sodium Gel [Voltaren 1% 1 applic TOPICAL TID PRN 11/13/23 11/13/23 Gel] Gabapentin [Neurontin] 300 mg PO TID 11/13/23 11/13/23 Ibuprofen [Motrin] 600 mg PO TID PRN 11/13/23 11/13/23 Phenazopyridine HCl [Pyridium] 100 mg PO TID 11/13/23 11/13/23 Sildenafil Citrate 100 mg PO DAILY PRN 11/13/23 11/13/23 Sulfamethox-Tmp 800-160Mg [Bactrim 1 tab PO DIRECTED 11/13/23 11/13/23 DS 800-160 mg] Allergies Allergy/AdvReac Type Severity Reaction Status Date / Time cholera vaccine Allergy Unknown-Per Verified 11/13/23 19:52 [facility] plague vaccine Allergy Unknown-Per Verified 11/13/23 19:52 [facility] typhoid vaccine Allergy Unknown-Per Verified 11/13/23 19:52 [facility] yellow fever vaccine live Allergy Unknown-Per Verified 11/13/23 19:52 [facility] vibrio cholerae Allergy Unknown-Per Uncoded 11/13/23 19:52 [facility] Review of Systems ROS Statement: Those systems with pertinent positive or pertinent negative responses have been documented in the HPI. ROS Other: All systems not noted in ROS Statement are negative. Past Medical History Past Medical History: Hyperlipidemia Additional Past Medical History / Comment(s): hx colon polyps History of Any Multi-Drug Resistant Organisms: None Reported Past Surgical History: Orthopedic Surgery Additional Past Surgical History / Comment(s): colonoscopies Past Anesthesia/Blood Transfusion Reactions: No Reported Reaction Past Psychological History: No Psychological Hx Reported Smoking Status: Never smoker Past Alcohol Use History: None Reported Past Drug Use History: None Reported - Past Family History Mother Family Medical History: No Reported History Brother(s) Family Medical History: Cancer Sister(s) Family Medical History: Cancer Additional Family Medical History / Comment(s): colon General Exam Limitations: no limitations General appearance: alert, in no apparent distress Head exam: Present: atraumatic, normocephalic Eye exam: Present: normal appearance, EOMI Neck exam: Present: normal inspection Respiratory exam: Absent: respiratory distress Neurological exam: Present: alert, oriented X3 Psychiatric exam: Present: normal affect, normal mood Skin exam: Present: warm, dry Course Vital Signs 11/13/23 11/13/23 16:49 18:46 Temperature 97.5 F L 97.8 F Pulse Rate 106 H 92 Respiratory 18 18 Rate Blood Pressure 174/102 159/102 O2 Sat by Pulse 96 96 Oximetry Medical Decision Making - Medical Decision Making Was pt. sent in by a medical professional or institution (, PA, OUTBOUND SUPERVISOR, urgent care, hospital, or usp...) When possible be specific @ -No Did you speak to anyone other than the patient for history (EMS, parent, family, police, friend...)? What history was obtained from this source @ -No Did you review nursing and triage notes (agree or disagree)? Why? @ -I reviewed and agree with nursing and triage notes Were old charts reviewed (outside hosp., previous admission, EMS record, old EKG, old radiological studies, urgent care reports/EKG's, usp records)? Report findings @ -No old charts were reviewed Differential Diagnosis (chest pain, altered mental status, abdominal pain women, abdominal pain men, vaginal bleeding, weakness, fever, dyspnea, syncope, headache, dizziness, GI bleed, back pain, seizure, CVA, palpatations, mental health, musculoskeletal)? @ -Differential includes clot, malignancy, prostate hypertrophy, stone, this is not an all-inclusive list EKG interpreted by me (3pts min.). @ -As above X-rays interpreted by me (1pt min.). @ -None done CT interpreted by me (1pt min.). @ -None done U/S interpreted by me (1pt. min.). @ -None done What testing was considered but not performed or refused? (CT, X-rays, U/S, labs)? Why? @ -None What meds were considered but not given or refused? Why? @ -None Did you discuss the management of the patient with other professionals (professionals i.e. DrWally, PA, OUTBOUND SUPERVISOR, lab, RT, psych nurse, social work manager, substation supervisor, teacher, staff combat information center officer, immigration case worker)? Give summary @ -Spoke with urologist on-call Dr. Garcia who at first asked for the cystoscopy cart to be placed outside of the room and for the patient to be placed n.p.o. Later it was decided that the patient would go to the OR. Was smoking cessation discussed for >3mins.? @ -No Was critical care preformed (if so, how long)? @ -No Were there social determinants of health that impacted care today? How? (Homelessness, low income, unemployed, alcoholism, drug addiction, transportation, low edu. Level, literacy, decrease access to med. care, snf, rehab)? @ -No Was there de-escalation of care discussed even if they declined (Discuss DNR or withdrawal of care, Hospice)? DNR status @ -No What co-morbidities impacted this encounter? (DM, HTN, Smoking, COPD, CAD, Cancer, CVA, ARF, Chemo, Hep., AIDS, mental health diagnosis, sleep apnea, morbid obesity)? @ -None Was patient admitted / discharged? Hospital course, mention meds given and route, prescriptions, significant lab abnormalities, going to OR and other pertinent info. @ -68-year-old male presenting with chief complaint of urinary retention. He was here earlier in the day and had a Galindo catheter placed by urologist on-call Dr. Garcia. He returns because his catheter is not draining and he is having severe pressure over the bladder. His bag has sandip blood. Attempts were made to flush the catheter, large clots were removed but patient was unable to pass urine. The catheter was removed and it was attempted to replace the catheter, however this was unsuccessful. I spoke with Dr. Garcia who states that the p atient will go to the OR. Patient is agreeable with this plan. I discussed this case with my attending Dr. Dallas Undiagnosed new problem with uncertain prognosis? @ -No Drug Therapy requiring intensive monitoring for toxicity (Heparin, Nitro, Insulin, Cardizem)? @ -No Were any procedures done? @ -No Diagnosis/symptom? @ -Urinary retention Acute, or Chronic, or Acute on Chronic? @ -Acute Uncomplicated (without systemic symptoms) or Complicated (systemic symptoms)? @ -Complicated Side effects of treatment? @ -No Exacerbation, Progression, or Severe Exacerbation? @ -No Poses a threat to life or bodily function? How? (Chest pain, [place], [place], pneumonia, PE, COPD, DKA, ARF, appy, cholecystitis, CVA, Diverticulitis, Homicidal, Suicidal, threat to staff... and all critical care pts) @ -Potentially Disposition Clinical Impression: Urinary retention Disposition: ADMITTED IP TO THIS HOSP Condition: Fair Time of Disposition: 19:42
[2023-11-13] MEDS: HYDROmorphone 1 MG/ML 1 ML SYRINGE IVP STA (18:07)
[2023-11-13] MEDS: MORPHINE SULFATE 4 MG/ML SYRINGE IVP STA (18:54)
[2023-11-13] MEDS ORDERED: NALOXONE 0.4 MG/ML 1 ML VIAL IV PRN (19:18)
[2023-11-13] MEDS: FAMOTIDINE 20 MG/2 ML VIAL IVP ONE (19:37)
[2023-11-13] MEDS: LACTATED RINGERS 1,000 ML IV ONE ×3 (19:38→22:45)
[2023-11-13] MEDS: METOCLOPRAMIDE 5 MG/ML 2 ML VIAL IVP ONE (19:38)
[2023-11-13] MEDS ORDERED: PROPOFOL 10 MG/ML 20 ML VIAL IV ONE (19:43)
[2023-11-13] MEDS ORDERED: MIDAZOLAM 2 MG/2 ML VIAL ONE (19:43)
[2023-11-13] MEDS ORDERED: fentaNYL (PF) 50 MCG/ML 2 ML AMP ONE (19:43)
[2023-11-13] MEDS ORDERED: KETAMINE HCL IN 0.9 % NACL 50 MG/5 ML SYRINGE ONE (19:43)
--- NOTE | 2023-11-13 19:47 | P.GSHP ---
History of Present Illness H&P Date: 11/13/23 Chief Complaint: Gross hematuria, clot retention This is a 68-year-old male that presented earlier due to inability to void secondary to a stone stuck in the urethra. A 12 Anguillan Galindo was placed and he was discharged home from the ER, he presented back with significant gross hematuria and catheter clotting. Subsequently attempted to be inserted another 12 Anguillan catheter was also clotted. Attempt placing a larger catheter was unsuccessful. Patient bladder scan showed greater than 1 L, has been only able to void small amounts with multiple clots with void. He is also been complaining of abdominal pressure secondary to his urinary retention - Constitutional Constitutional: Reports as per HPI - EENT Ears, nose, mouth and throat: Denies headache, Denies sore throat - Cardiovascular Cardiovascular: Denies chest pain, Denies shortness of breath - Respiratory Respiratory: Denies cough, Denies 7 - Gastrointestinal Gastrointestinal: Reports abdominal pain - Genitourinary (Female) Genitourinary: Reports hematuria Past Medical History Past Medical History: Hyperlipidemia Additional Past Medical History / Comment(s): hx colon polyps History of Any Multi-Drug Resistant Organisms: None Reported Past Surgical History: Orthopedic Surgery Additional Past Surgical History / Comment(s): colonoscopies Past Anesthesia/Blood Transfusion Reactions: No Reported Reaction Past Psychological History: No Psychological Hx Reported Smoking Status: Never smoker Past Alcohol Use History: None Reported Past Drug Use History: None Reported - Past Family History Mother Family Medical History: No Reported History Brother(s) Family Medical History: Cancer Sister(s) Family Medical History: Cancer Additional Family Medical History / Comment(s): colon Medications and Allergies Home Medications Medication Instructions Recorded Confirmed Type Sulfamethox-Tmp 800-160Mg [Bactrim 1 tab PO DIRECTED 11/13/23 History DS 800-160 mg] Allergies Allergy/AdvReac Type Severity Reaction Status Date / Time No Known Allergies Allergy Verified 11/13/23 16:51 Surgical - Exam Vital Signs Temp Pulse Resp BP Pulse Ox 97.5 F L 106 H 18 174/102 96 11/13/23 16:49 11/13/23 16:49 11/13/23 16:49 11/13/23 16:49 11/13/23 16:49 - General moderate distress, moderate pain - Eyes normal ocular movement, no pale - ENT normal nares, normal mucosa - Respiratory normal expansion, normal respiratory effort - Abdomen Abdomen: soft, tender (Suprapubic region), distended - Psychiatric oriented to time, oriented to person, oriented to place Assessment and Plan Assessment: 68-year-old male with history of bladder, urethral stone initially presented this morning with retention only 12 Anguillan catheter could be placed. Presented back to the ER with clot retention inability to irrigate the catheter. Discussed with him given that were not able to place any larger size catheter and his significant urinary retention and clot burden I recommend proceeding to the OR with cystoscopy clot evacuation. Discussed potential of doing a cystolitholapaxy to address the stone the same setting. Risk benefit and rationale of surgery was discussed in the -OR for cystoscopy clot EVAC, possible cystolitholapaxy
[2023-11-13] MEDS: SODIUM CHLORIDE 0.9% 100 ML with ceFAZolin 2,000 MG IV ONE ×2 (19:54→19:56)
[2023-11-13] MEDS: IOPAMIDOL-370 50ML BTL MISCELLANE ONE ×2 (20:40)
[2023-11-13] MEDS: BUPIVACAINE (PF) 0.25% 10 ML VIAL SQ ONE ×2 (21:45)
--- NOTE | 2023-11-13 22:22 | P.OP ---
Date of Procedure: 11/13/23 Preoperative Diagnosis: Urinary retention, gross hematuria Postoperative Diagnosis: Same Procedure(s) Performed: Cystoscopy, urethral stent placement, suprapubic tube placement, urethral dilation ,clot evacuation and cystogram Implants: 12 Mongolian nephrostomy tube was placed per urethra into the bladder Anesthesia: MAC Surgeon: Harshad Garcia Estimated Blood Loss (ml): 250 Pathology: none sent Condition: stable Disposition: PACU Indications for Procedure: 8-year-old male with history of bladder, urethral stone initially presented this morning with retention only 12 Mongolian catheter could be placed. Presented back to the ER with clot retention inability to irrigate the catheter. Discussed with him given that were not able to place any larger size catheter and his significant urinary retention and clot burden I recommend proceeding to the OR with cystoscopy clot evacuation. Discussed potential of doing a cystolitholapaxy to address the stone the same setting. Risk benefit and rationale of surgery was discussed Operative Findings: Multiple false passages throughout the urethra, significant clot burden within the urethra unable to visualize the true lumen into the bladder Description of Procedure: Patient brought to the operating room, sedation was induced. He was prepped and draped in sterile fashion and placed in a dorsolithotomy position. Cystoscopy fitted with a 22 Mongolian sheath was inserted per urethra, I advance the scope to the level of the bulbar urethra, at this point multiple false passages were encountered, and there was significant clot burden within the urethra, attempted to irrigate some of the clots within the urethra I was able to but there was still significant amount of clot which made visualization very limited, additionally there was diffuse venous oozing throughout the urethra. I was able to advance a Glidewire through the cystoscope into the bladder, this location of the bladder was confirmed on fluoroscopy. I attempted to follow the wire into t he bladder but was not able to due to the bleeding and the significant amount of clot burden. At this point the cystoscope was withdrawn and a 6 Mongolian open- ended catheter was passed over the wire and into the bladder. Contrast was injected through the open-ended catheter which confirmed that the wire was indeed within the bladder. At this time the wire was readvanced through the catheter and the catheter was removed with the wire in place. At this point I made multiple attempts to advance a catheter into the bladder using 12,14 and 16 Mongolian catheters but was not successful, there was resistance met at the level of the prostate, most likely the resistance was met at the level of the patient's known stones at that level. At this point I switched to the urethral dilators, and using the S shaped dilators I passed them over the wire and attempted to dilate the urethra, I started with the 10 Mongolian dilator and went up all the way up to 16, I was unable to dilate the urethra beyond the 16 Mongolian, at this point I reattempted to advance the catheter but again was not able to navigate the catheter passed the stones and into the bladder. Given this finding decision was made to proceed with suprapubic tube placement, the bladder was palpable on exam. Going two fingerbreadth above the pubic bone lidocaine was injected. The patient was placed in Trendelenburg position. Next using a spinal needle this was advanced into the bladder with return of urine. Next a wire was advanced through the spinal needle into the bladder. Next using the Cook set initially used the 8-10 Mongolian dilators followed by the introducer sheath. Next a 16 Mongolian silicone catheter was advanced into the bladder through the sheath with return of clear urine. The bladder was irrigated to clear. At this point attention was then carried to the urethra, I was able to advance a 12 Mongolian nephrostomy tube through the wire and into the bladder to maintain access into the bladder. The location of the nephrostomy tube was confirmed on fluoroscopy. At this point the patient was awakened from anesthesia taken to recovery in stable condition
[2023-11-13] MEDS ORDERED: HYDROcodone/APAP 5-325MG 1 EACH TAB PO PRN (23:22)
[2023-11-13] MEDS ORDERED: MORPHINE SULFATE 2 MG/ML SYRINGE IV PRN (23:22)
[2023-11-14] MEDS: SULFAMETHOX-TMP 800-160MG 1 EACH TAB PO SCH (00:04)
[2023-11-14] MEDS: SODIUM CHLORIDE 0.45% 1,000 ML IV SCH (00:05)
[2023-11-14] MEDS: HEPARIN SODIUM,PORCINE 5,000 UNIT/ML 1 ML VIAL SQ SCH (00:05)
[2023-11-14 05:10] LABS: Basophils % (A) 0 %; Eosinophils # (A) 0.1 k/uL (0-0.7); Eosinophils % (A) 1 %; HCT 40.9 % (39.0-53.0); HGB 13.2 gm/dL (13.0-17.5); Lymphocytes # (A) 1.3 k/uL (1.0-4.8); Lymphocytes % (A) 9 %; MCH 28.7 pg (25.0-35.0); MCHC 32.2 g/dL (31.0-37.0); MCV 89.4 fL (80.0-100.0); Mean Platelet Volume 8.1; Monocytes # (A) 0.8 k/uL (0-1.0); Monocytes % (A) 6 %; Neutrophils # (A) 12.6 k/uL (1.3-7.7); Neutrophils % (A) 84 %; Platelet Count 165 k/uL (150-450); RBC 4.58 m/uL (4.30-5.90); RDW 14.9 % (11.5-15.5); WBC 15.1 k/uL (3.8-10.6)
--- NOTE | 2023-11-14 08:10 | FL ---
EXAMINATION TYPE: FL urography retrograde DATE OF EXAM: 11/13/2023 COMPARISON: NONE HISTORY: Cystoscopy with evacuation of clots TECHNIQUE: Fluoroscopy. FINDINGS: Cystoscopy with evacuation of clots. Suprapubic catheter insertion. Hx of stone. 1 image. 4.30mins fluoro. DAP=[id number] Dr. Garcia IMPRESSION: As Above.
[2023-11-14 09:09] VITALS: BP 126/79; PULSE 71; RESP 16; TEMP 97.6
--- NOTE | 2023-11-14 10:38 | P.DS ---
Providers Date of admission: 11/13/23 19:18 Attending physician: Harshad Garcia MD Primary care physician: [facility] Hospital Course: This is a 68-year-old male with history of urinary retention secondary to obstructed urethral stone, he is admitted to the hospital with clot retention, and inability to place a Galindo catheter. Patient was taken emergently to the OR on November 12, attempted to place a Galindo catheter was unsuccessful as a suprapubic tube was placed. Please see op note dated November 12 for surgery details. Patient was admitted to the hospital postoperatively, he did well in the postoperative period. He was discharged home with a suprapubic tube. Of note there is also a 12 Frisian nephrostomy tube per urethra into the bladder that is currently clamped. At time of discharge he was tolerating a diet, ambulating, and pain was controlled, he will be set up for a follow-up for urethral stone removal and exchanging the nephrostomy tube to urethral catheter Patient Condition at Discharge: Fair Plan - Discharge Summary Discharge Rx Participant: No New Discharge Prescriptions: No Action Ibuprofen [Motrin] 600 mg PO TID PRN PRN Reason: Pain or inflammation Gabapentin [Neurontin] 300 mg PO TID Sulfamethox-Tmp 800-160Mg [Bactrim DS 800-160 mg] 1 tab PO DIRECTED Phenazopyridine HCl [Pyridium] 100 mg PO TID Diclofenac Sodium Gel [Voltaren 1% Gel] 1 applic TOPICAL TID PRN PRN Reason: Pain Cetirizine HCl 10 mg PO DAILY PRN PRN Reason: Allergy Symptoms Atorvastatin Calcium [Lipitor] 80 mg PO HS Sildenafil Citrate 100 mg PO DAILY PRN PRN Reason: E.D. Discharge Medication List Atorvastatin Calcium [Lipitor] 80 mg PO HS 11/13/23 [History] Cetirizine HCl 10 mg PO DAILY PRN 11/13/23 [History] Diclofenac Sodium Gel [Voltaren 1% Gel] 1 applic TOPICAL TID PRN 11/13/23 [History] Gabapentin [Neurontin] 300 mg PO TID 11/13/23 [History] Ibuprofen [Motrin] 600 mg PO TID PRN 11/13/23 [History] Phenazopyridine HCl [Pyridium] 100 mg PO TID 11/13/23 [History] Sildenafil Citrate 100 mg PO DAILY PRN 11/13/23 [History] Sulfamethox-Tmp 800-160Mg [Bactrim DS 800-160 mg] 1 tab PO DIRECTED 11/13/23 [History] Follow up Appointment(s)/Referral(s): [facility],Clinic [Primary Care Provider] - 1-2 days Activity/Diet/Wound Care/Special Instructions: Increase fluid intake Take your prescribed antibiotic You will be contacted by our office to arrange follow-up Discharge Disposition: HOME SELF-CARE
== END 2023-11-14 12:25 | disposition home or self-care (01) ==
LOC: EC 16:47 → 6NMEDSUR 19:18
PROVIDERS: ADMIT Urology; ATTEND Urology
DX: T83.091A Other mechanical complication of indwelling urethral catheter, initial encounter (principal); Y73.8 Miscellaneous gastroenterology and urology devices associated with adverse incidents, not elsewhere classified; N21.1 Calculus in urethra; R33.9 Retention of urine, unspecified; E78.5 Hyperlipidemia, unspecified; Z79.899 Other long term (current) drug therapy
CPT/HCPCS: 96372; 99284; 85025; 74420; 52281; G0378 ×2; C1769; C1758; C1729; J2250; J2270; J1644; J2765; J0690; J3010; J3490; J1170; J2704; Q9967; J0665

== ENCOUNTER 2023-11-23 07:53 | Day surgery (SDC) | payer MEDICARE, OTHER ==
[~2023-11-23 07:53] MED LIST changes: +HYDROmorphone 0.5 MG/0.5 ML SYRINGE IVP PRN; -LACTATED RINGERS 1,000 ML IV SCH; +MIDAZOLAM 2 MG/2 ML VIAL IV PRN
[2023-11-23] MEDS: LACTATED RINGERS 1,000 ML IV SCH (08:20)
[2023-11-23] MEDS: ONDANSETRON 4 MG/2 ML VIAL IVP ONE (08:36)
[2023-11-23] MEDS: DEXAMETHASONE SOD PHOSPHATE 4 MG/ML 1 ML VIAL IV ONE (08:36)
--- NOTE | 2023-11-23 09:00 | P.HPIHPCON ---
History of Present Illness H&P Date: 11/23/23 Chief Complaint: Bladder stone This is a 68-year-old male with history of bladder stone stuck at the prostatic urethra, developed urinary retention secondary to his bladder stone. He underwent attempted catheter placement at the emergency department and in the emergency department they were unable to place a Galindo catheter, he was taken to the OR for attempted catheter placement, I was unable to place a Galindo catheter secondary to multiple false passages and significant narrowing at the prostatic urethra, I was only able to place a 12 Georgian nephrostomy tube into the bladder per urethra, and was able to place a 16 Georgian suprapubic catheter. He presents today to attempt to address his bladder stone, and exchange the nephrostomy tube to a Galindo catheter. Discussed with him the risk of surgery which includes but not limited to bleeding, infection, injury to the urethra, discussed potential I might still not able to place a catheter into the bladder given his bladder stone. Risk benefit and rationale of the surgery was discussed in detail Consent for Procedure: I have explained the operation/procedure to the patient, including the risks, benefits, side effects, alternative therapies (including not receiving the proposed treatment or service), the likelihood of the patient achieving his/her goals, and potential recuperation problems for the procedure/sedation/analgesia, as well as any blood products, if indicated. I also explained to the patient the risks, benefits and side effects of the alternatives, as well as the risks related to not receiving the proposed procedure, care, treatment, or services. Past Medical History Past Medical History: Hyperlipidemia, Prostate Disorder Additional Past Medical History / Comment(s): hx colon polyps, possible kidney or bladder stone , History of Any Multi-Drug Resistant Organisms: None Reported Past Surgical History: Joint Replacement, Prostate Surgery Additional Past Surgical History / Comment(s): colonoscopies, turp alexis knee replaced,cystoscopy and "catheter thru stomach" due to torn urethra, ureteral stent placed 11/13/23 Past Anesthesia/Blood Transfusion Reactions: No Reported Reaction Smoking Status: Never smoker - Past Family History Mother Family Medical History: No Reported History Brother(s) Family Medical History: Cancer Sister(s) Family Medical History: Cancer Additional Family Medical History / Comment(s): colon Medications and Allergies Home Medications Medication Instructions Recorded Confirmed Type Atorvastatin Calcium [Lipitor] 80 mg PO HS 11/13/23 11/23/23 History Cetirizine HCl 10 mg PO DAILY PRN 11/13/23 11/23/23 History Diclofenac Sodium Gel [Voltaren 1% 1 applic TOPICAL TID PRN 11/13/23 11/23/23 History Gel] Gabapentin [Neurontin] 300 mg PO TID 11/13/23 11/23/23 History Ibuprofen [Motrin] 600 mg PO TID PRN 11/13/23 11/23/23 History Sildenafil Citrate 100 mg PO DAILY PRN 11/13/23 11/23/23 History Sulfamethox-Tmp 800-160Mg [Bactrim 1 tab PO DIRECTED 11/13/23 11/23/23 History DS 800-160 mg] Allergies Allergy/AdvReac Type Severity Reaction Status Date / Time cholera vaccine Allergy Unknown-Per Verified 11/23/23 08:13 [facility] plague vaccine Allergy Unknown-Per Verified 11/23/23 08:13 [facility] typhoid vaccine Allergy Unknown-Per Verified 11/23/23 08:13 [facility] yellow fever vaccine live Allergy Unknown-Per Verified 11/23/23 08:13 [facility] vibrio cholerae Allergy Unknown-Per Uncoded 11/23/23 08:13 [facility] Surgical - Exam Vital Signs Temp Pulse Resp BP Pulse Ox 97.0 F L 97 18 147/92 98 11/23/23 08:11 11/23/23 08:11 11/23/23 08:11 11/23/23 08:11 11/23/23 08:11 - General no distress, no pain - Eyes normal ocular movement, no pale - ENT normal nares, normal mucosa - Respiratory normal expansion, normal respiratory effort - Abdomen Abdomen: soft, non tender Assessment and Plan Assessment: OR for cystoscopy, cystolitholapaxy
[2023-11-23] MEDS ORDERED: PHENYLEPHRINE-0.9% NACL SYG 1,000 MCG/10 ML SYRINGE ONE (09:17)
[2023-11-23] MEDS ORDERED: PROPOFOL 10 MG/ML 20 ML VIAL IV ONE (09:17)
[2023-11-23] MEDS ORDERED: MIDAZOLAM 2 MG/2 ML VIAL ONE (09:17)
[2023-11-23] MEDS ORDERED: fentaNYL (PF) 50 MCG/ML 2 ML AMP ONE (09:17)
[2023-11-23] MEDS ORDERED: SUCCINYLCHOLINE CHLORIDE 200 MG/10 ML VIAL IV ONE (09:17)
--- NOTE | 2023-11-23 10:43 | P.OP ---
Date of Procedure: 11/23/23 Preoperative Diagnosis: bladder stone Postoperative Diagnosis: same Procedure(s) Performed: cystoscopy, Cystolithalopaxy (<2.5cm) Anesthesia: ESSENCE Surgeon: Harshad Garcia Estimated Blood Loss (ml): 10 Pathology: other (bladder stone) Condition: stable Indications for Procedure: This is a 68-year-old male with history of bladder stone stuck at the prostatic urethra, developed urinary retention secondary to his bladder stone. He underwent attempted catheter placement at the emergency department and in the emergency department they were unable to place a Galindo catheter, he was taken to the OR for attempted catheter placement, I was unable to place a Galindo catheter secondary to multiple false passages and significant narrowing at the prostatic urethra, I was only able to place a 12 Filipino nephrostomy tube into the bladder per urethra, and was able to place a 16 Filipino suprapubic catheter. He presents today to attempt to address his bladder stone, and exchange the nephrostomy tube to a Galindo catheter. Discussed with him the risk of surgery which includes but not limited to bleeding, infection, injury to the urethra, discussed potential I might still not able to place a catheter into the bladder given his bladder stone. Risk benefit and rationale of the surgery was discussed in detail Operative Findings: A false passage was seen in the bulbar urethra, an additional false passage on the prostatic urethra at 6 o'clock position. A stone stuck at the prostatic urethra that was lasered, an additional stone within the bladder that was also fragmented Description of Procedure: Patient brought to the operating room, general anesthesia was induced. He was prepped and draped in sterile fashion placed in a dorsolithotomy position. At this time the suprapubic tube was clamped. Next a sensor wire was advanced through the nephrostomy tube per urethra, and the 12 Filipino nephrostomy tube was removed with the wire in place. Next a cystoscopy. A 17 Filipino sheath was inserted per urethra, cystoscopy was performed which showed a false passage along the bulbar urethra at 6 o'clock position, I was able to navigate the scope past the false passage and at the level of the prostatic urethra and additional false passage was seen at 6:00 within the prostatic urethra near the bladder neck. Of note there was a stone stuck at the prostatic urethra, an additional stone within the bladder, cystoscopy was performed which showed no additional abnormalities within the bladder. Using the holmium laser the stone within the bladder was fragmented and the stone at the prostatic urethra was also fragmented, all stone fragments were irrigated out. Repeat cystoscopy showed no injury to the bladder or evidence of any stones within the bladder. At this time a sensor wire was advanced through the cystoscope and the cystoscope was withdrawn with the wire in place. Next an 18 Filipino silicone catheter was backloaded over the wire and into the bladder, the catheter was irrigated to clear, the balloon was inflated with 30 cc. At this point the patient was awakened from anesthesia and taken to recovery in stable condition, we will plan on removing the suprapubic catheter in 1 week, and the Galindo catheter in 2 to 3 weeks
[2023-11-23 10:57] VITALS: TEMP 97.5
[2023-11-23 11:44] VITALS: RESP 20
[2023-11-23 12:29] VITALS: BP 157/93; PULSE 82
== END 2023-11-23 12:35 | disposition home or self-care (01) ==
LOC: OR 07:53
PROVIDERS: ATTEND Urology
DX: N21.0 Calculus in bladder (principal); E78.5 Hyperlipidemia, unspecified; N41.9 Inflammatory disease of prostate, unspecified; Z87.19 Personal history of other diseases of the digestive system; Z79.899 Other long term (current) drug therapy
CPT/HCPCS: 52317; C1769 ×2; J2250; J0330; J1100; J0690; J2405; J3010; J2704; J2371